=== PATIENT | female | born 1985 | race Caucasian/White ===

== ENCOUNTER → 2017-08-04 | Day surgery (SDC) | payer OTHER ==
[~2017-08-04] VITALS: Ht 157.5 cm; Wt 56.7 kg
[~2017-08-04] MED LIST: AVIANE-28 TABL1 EACH PO; CLARITIN10 M1 PO; CLARITIN10 MG PO; LEXAPRO 10MG10 MG PO; LEXAPRO10 M1 PO; OMEPRAZOLE40 M1 PO; PERCOCET 5-3251 EACH PO; PRILOSEC40 MG PO; PROBIOTIC1 EACH PO; SALINE NASAL SP30 ML NASB; XULANE1 TDM TOP
--- NOTE | 2017-08-04 08:27 | Operative Report ---
Operative/Inv Procedure Report Surgery Date: 08/04/17 Name of Procedure: Excision of 4 cm mass right upper inner thigh Pre-Operative Diagnosis: 4 cm mass right upper Post-Operative Diagnosis: Same pending pathology Estimated Blood Loss: scant Surgeon/Forensic Technician: Bubba RUSSELL,Fred Ponce Anesthesia: moderate sedation Specimens: 4 cm mass right upper inner thigh Complications: None Operative Indication: Patient had large mass of the right upper inner thigh which could not be removed in the office Operative/Procedure Note Note: The patient was placed on the operating table in the supine position. She was turned to the left lateral decubitus position. A timeout was taken by the team. The area in question was prepped and draped in the usual sterile manner. After adequate IV sedation was obtained a combination of 2% Novocain and 0.5% Marcaine in a 50-50 mixture was infiltrated around the mass. An Elliptical incision was made through skin around the mass. Bleeding points were controlled with the electro cautery device. The electrocautery device was used to dissect into the deeper tissue maintaining hemostasis. The mass seemed consistent with a lipomatous lesion and all of the lipomatous tissue was taken out of the subcutaneous tissue with the mass. Hemostasis was maintained with the electrocautery device. The mass was removed and sent for pathologic review. Hemostasis in the base of the wound was noted to be good. The wound was then closed in layers with 3-0 Vicryl in the deeper subcutaneous tissue. Interrupted 4 nylon sutures on the skin were used. A sterile dressing was applied. The patient tolerated the procedure well and was taken back to the outpatient recovery area with stable vital signs. Discharge Disposition: Same Day Admissions
== END ==
LOC: STS 01:06
DX: D17.23 Benign lipomatous neoplasm of skin and subcutaneous tissue of right leg (principal)
CPT/HCPCS: 81025; C9399; J0131; J2001; J2250